=== PATIENT | female | born 1945 | race Two or more races ===

== ENCOUNTER 2025-03-14 11:40 | Emergency (ER) | payer MEDICARE, MEDICAID, SELFPAY ==
[2025-03-14 11:52] VITALS: BP 155/67; PULSE 67; RESP 17; TEMP 36.7; O2SAT 95; BMI 28.0
--- NOTE | 2025-03-14 12:05 | EDNOTE_ITS ---
ED General RME/HPI General Chief complaint: General Adult/Misc Complain Stated complaint: Hemorrhoids, abdominal pain Time Seen by Provider: 03/14/25 12:05 Source: patient and family Arrival date/time: 03/14/25 11:40 Mode of arrival: ambulatory Limitations: no limitations RME / HPI RME / HPI narrative: 79-year-old female presents with complaint of burning sensation upon urination x 8 days and also complains of hemorrhoids x 8 days. Onset (ago): day(s) (8 days) Radiation: non-radiation Severity: moderate Severity scale (1-10): 4 Quality: burning (Upon urination) and aching (Upon defecation) Consistency: intermittent Exacerbating factors: none Related Data Home Medications ?Medication ?Instructions ?Recorded ?Confirmed LERCANIDIPINE 10 mg PO BID High Blood Pres sure 06/28/15 ##0 Levothyroxine * (SYNTHROID *) 100 mcg PO ACBR Thyroid #0 tabs 06/28/15 Prednisone * (DELTASONE *) 5 mg PO QAM #0 tabs 5 Telmisartan/Hydrochlorothiazide * 1 tab PO QAM High Bl ood Pressure 06/28/15 (MICARDIS HCT 80/12.5 *) #0 tabs allopurinol 300 mg tablet 300 mg PO EVERYOTHERDAY URIC ACID 06/28/15 (Zyloprim) #0 tabs furosemide 40 mg tablet (Lasix) 40 mg PO QDAY Diuretic #0 tabs 06/28/15 Previous Rx's ?Medication ?Instructions ?Recorded cephalexin 500 mg capsule 500 mg PO Q8H #21 caps 03/14 cephalexin 500 mg capsule 500 mg PO Q8H PRN Urinary tr act 03/14/25 infection #21 caps hydrocortisone 1 % topical cream 1 applic topical BID PRN 03/14/25 (Preparation H Hydrocortisone) hemorrhoids #28.4 grams hydrocortisone 1 % topical cream 1 applic topical BID PRN itching 03/14/25 (Proctocort) #28.35 grams Allergies Allergy/AdvReac Type Severity Reaction Status Date / Time NKA Allergy Unknown Uncoded 03/14/25 11:47 Review of Systems Constitutional Constitutional: Reports system reviewed and no additional complaints, except as documented Eyes Eyes: Reports system reviewed and no additional complaints, except as documented, Denies dry eyes, Denies exophthalmos and Reports floaters Cardiovascular Cardiovascular: Denies chest pain with activity and Denies claudication ED Exam General Limitations: Present no limitations General appearance: Present alert and in no apparent distress Head Head exam: Present atraumatic Eye Eye exam: Present normal appearance and EOMI ENT ENT exam: Present normal exam, normal oropharynx and mucous membranes moist Neck Neck exam: Present normal inspection, full ROM and trachea midline Chest Chest inspection: Present normal inspection and symmetric chest wall rise Respiratory Respiratory exam: Present normal lung sounds bilaterally Cardiovascular Cardiovascular exam: Present regular rate, normal rhythm and normal heart sounds Abdominal Exam Abdominal exam: Present soft and normal bowel sounds Extremities Exam Extremities exam: Present normal inspection and full ROM Back Exam Back exam: Present normal inspection and full ROM Neurological Exam Neurological exam: Present alert and oriented X3 Psychiatric Psychiatric exam: Present normal affect and normal mood Skin Skin exam: Present warm, dry, intact and normal color Course Course Course Narrative: UA CBC CMP and an anal exam Quality Measures none (NA) Orders Category Date Time Status CBC Stat Lab 03/14/25 12:21 Completed Comprehensive Metabolic Panel Stat Lab 03/14/25 12:21 Completed Urinalysis Stat Lab 03/14/25 13:09 Completed Vital Signs Vital signs: Vital Signs Temperature 98.0 F 03/14/25 11:52 Pulse Rate 67 03/14/25 11:52 Respiratory Rate 17 03/14/25 11:52 Blood Pressure 155/67 H 03/14/25 11:52 Pulse Oximetry (%) 95 03/14/25 11:52 Oxygen Delivery Method Room Air 03/14/25 11:52 Pulse ox is 95% room air Discharge Plan Plan Patient Disposition: HOME (Self Care) Discharge Disposition comment: Discharge in no apparent distress Patient condition on transfer: Stable Prescriptions/Referrals Prescriptions/Med Rec: New hydrocortisone [Proctocort] 1 % cream 1 applic topical BID PRN (Reason: itching) Qty: 28.35 0RF cephalexin 500 mg capsule 500 mg PO Q8H Qty: 21 0RF hydrocortisone [Preparation H Hydrocortisone] 1 % cream 1 applic topical BID PRN (Reason: hemorrhoids) Qty: 28.4 0RF cephalexin 500 mg capsule 500 mg PO Q8H PRN (Reason: Urinary tract infection) Qty: 21 0RF No Action furosemide [Lasix] 40 MG tablet 40 mg PO QDAY Qty: 0 allopurinol [Zyloprim] 300 MG tablet 300 mg PO EVERYOTHERDAY Qty: 0 LERCANIDIPINE 10 mg PO BID Qty: 0 Levothyroxine * (SYNTHROID *) 100 MCG tablet 100 mcg PO ACBR Qty: 0 Prednisone * (DELTASONE *) tablet 5 mg PO QAM Qty: 0 Telmisartan/Hydrochlorothiazide * (MICARDIS HCT 80/12.5 *) 1 TAB tablet 1 tab PO QAM Qty: 0 Referrals: No Primary/Family,Physician [Primary Care Provider] - In 1 week Problem List Clinical Impression: Acute UTI, Hemorrhoids Patient/Caregiver Discharge Instructions Print Language: Maltese Stand Alone Forms: Laura Award Info., Patient Portal Info Letter MDM Narrative Sign out note: NA [facility] hospital course: Patient will have cephalexin for her urinary tract infection and I will send that to the pharmacy of her choice. I will also send a preparation for her hemorrhoids. Patient is to primary care physician within a week for follow-up to today's visit. If she is worse she may return here. Patient discharged in no apparent distress. Procedures done or offered: NA Clinical Information Provided by patient and family Medical Records Reviewed None NA Meds/Rx Considered, not Ordered None Describe details: NA Labs/Rad/Tests considered, not Ordered None Chronic Illness/Social Conditions which may negatively complicate care or outcome(s)-explain: None or not applicable EKG EKG not done Lab Interpretation Labs: none Imaging Imaging interpretation: none Provider imaging interpretation(s): NA Radiology reports / interpretation(s): NA Medication Administration(s) none NA Diagnosis Differential diagnosis: NA Differential dx and/or dx ruled out: NA Most likely dx, and/or detailed dx discussion: NA Dispositon Disposition: Discharge Home
[2025-03-14 12:32] LABS: Basophils # (Auto) 0.1 Thou/mm3 (0.0-0.2); Basophils % (Auto) 1 % (0-2.5); Eosinophils # (Auto) 0.0 Thou/mm3 (0.0-0.5); Eosinophils % (Auto) 0 % (0-10); Hematocrit 39.4 % (36.0-46.0); Hemoglobin 13.3 g/dL (12.0-16.0); Immature Granulocytes Auto 0.19 Thou/mm3 (0.00-0.00); Lymphocytes # (Auto) 1.8 Thou/mm3 (1.0-4.8); Lymphocytes % (Auto) 11 % (10-50); Mean Corpuscular HGB Conc 33.8 g/dl (31.0-37.0); Mean Corpuscular Hemoglobin 33.2 pg (25.0-35.0); Mean Corpuscular Volume 98 fL (80-100); Monocytes # (Auto) 1.2 Thou/mm3 (0.0-0.8); Monocytes % (Auto) 8 % (0-12); Neutrophils # (Auto) 13.2 Thou/mm3 (1.8-7.7); Neutrophils % (Auto) 80 % (37-80); Nucleated Red Blood Cell # 0.00 Thou/mm3 (0.00-0.00); Nucleated Red Blood Cell % 0 /100 WBC (0); Platelet Count 203 Thou/mm3 (140-440); RDW Standard Deviation 48.9 fL (36.4-46.3); Red Blood Count 4.01 Miln/mm3 (4.00-5.20); White Blood Count 16.6 Thou/mm3 (3.6-11.0)
[2025-03-14 12:53] LABS: Alanine Aminotransferase 19 U/L (10-49); Albumin, Serum 4.4 gm/dL (3.4-4.8); Albumin/Globulin Ratio 1.5 (1.2-2.2); Alkaline Phosphatase 67 U/L (46-116); Anion Gap 11 (7-16); Aspartate Amino Transferase 25 U/L (0-34); BUN/Creatinine Ratio 17 Ratio (12-20); Bilirubin,Total 0.9 mg/dL (0.3-1.2); Blood Urea Nitrogen 26 mg/dL (9-23); Calcium 9.2 mg/dL (8.3-10.6); Calcium (Corrected) 9.2 mg/dL (8.5-10.1); Carbon Dioxide 26.4 mMol/L (20.0-31.0); Chloride 106 mMol/L (98-107); Creatinine (Component) 1.5 mg/dL (0.6-1.3); Estimated Creatinine Clearance 27.1 mL/min (>60); Globulin 2.9 gm/dL (2.3-3.5); Glucose 116 mg/dL (74-106); Osmolality,Calculated 290 (275-295); Potassium 4.7 mMol/L (3.4-5.1); Sodium 143 mMol/L (136-145); Total Protein 7.3 gm/dL (5.7-8.2); eGFR 35 See Note
[2025-03-14 13:16] LABS: Collection Type, Urine Clean Catch
[2025-03-14 13:21] LABS: Bilirubin,Urine Negative (Negative); Blood,Urine Trace (Negative); Clarity,Urine Clear (Clear/Hazy); Color,Urine Lt-Yellow (Lt Yel-Yel); Glucose, Urine Negative (Negative); Hyaline Casts,Urine < 1 /hpf (0-1); Ketones,Urine Negative (Negative); Leukocyte Esterase,Urine Positive (Negative); Nitrite,Urine Negative (Negative); PH,Urine 5.5 (5.0-7.0); Protein,Urine Trace (Neg - Trace); RBC,Urine 7 /hpf (0-3); Specific Gravity,Urine 1.016 (1.001-1.035); Squamous Epithelial Cell,Urine 1 /hpf (0-5); Urobilinogen,Urine Negative mg/dL (0.0-1.0); WBC,Urine 13 /hpf (0-5)
== END 2025-03-14 14:48 | disposition home or self-care (01) ==
PROVIDERS: Emergency Provider Physician Assistant
DX: K64.9 Unspecified hemorrhoids (principal); N39.0 Urinary tract infection, site not specified
CPT/HCPCS: 36415; 80053; 81001; 85025; 99283